=== PATIENT | male | born 1940 | race Caucasian/White ===

== ENCOUNTER 2019-09-21 07:17 | Outpatient (CLI) | payer OTHER | END 2019-09-21 23:59 | disposition home or self-care (01) | LOC: ROC 07:17 | PROVIDERS: ATTEND Radiology Radiation Oncology | DX: C02.4 Malignant neoplasm of lingual tonsil (principal) | CPT/HCPCS: 99212; G0463 ==

== ENCOUNTER 2019-10-15 08:39 | Outpatient (CLI) | payer OTHER | END 2019-10-15 23:59 | disposition home or self-care (01) | LOC: ROC 08:39 | PROVIDERS: ATTEND Radiology Radiation Oncology | DX: C02.4 Malignant neoplasm of lingual tonsil (principal) | CPT/HCPCS: 99212; G0463 ==

== ENCOUNTER → 2019-12-24 | Outpatient (CLI) | payer OTHER | END | disposition home or self-care (01) | LOC: PETCFH 09:32 | PROVIDERS: ATTEND Internal Medicine Hematology & Oncology | DX: C09.9 Malignant neoplasm of tonsil, unspecified (principal); M16.0 Bilateral primary osteoarthritis of hip; Z95.1 Presence of aortocoronary bypass graft | CPT/HCPCS: 78815; A9552 ==

== ENCOUNTER → 2020-06-20 | Outpatient (CLI) | payer OTHER | END | disposition home or self-care (01) | LOC: CFH 08:34 | PROVIDERS: ATTEND Otolaryngology | DX: N62 Hypertrophy of breast (principal); N64.4 Mastodynia; N63.0 Unspecified lump in unspecified breast | CPT/HCPCS: 77066; G0279 ==